=== PATIENT | female | born 1995 | race Two or more races ===

== ENCOUNTER 2016-07-08 23:50 | Emergency (ER) | payer OTHER ==
--- NOTE | ~2016-07-08 | CR72 ---
[facility] A Service of [facility] RADIOLOGY TEXT RESULTS PATIENT: VIRI RICE LOCATION: [facility] : [birth year] UNIT #: [id number] AGE: [address]: George Arana MD SEX: F ORDER DR: [id number] [facility]. [place], [place] [address] [id number] MR#: [id number] Acc #: [id number] NAME: VIRI RICE : 1995 SEX: F STUDY DATE/TIME: 07/09/2016 1:14 UNIT: [facility] ROOM: STUDY DESCRIPTION: CR Chest Single View Portable Attending Physician: George Arana Ordering Physician: Ed Doctor [id number] [facility] Primary Care Physician: Primary Care Physician No MEDICAL IMAGING REPORT This report is preliminary unless electronic signature is present EXAM Portable AP view of the chest COMPARISON None INDICATIONS 20-year-old female with dyspnea and cough for 2 days. FINDINGS Exam is limited by apical lordotic technique and low lung volumes. No evidence of pneumothorax, pleural effusion or consolidative pneumonia. There are questionable nodular opacities in both lungs which may reflect granulomas or could reflect blood vessels on end in the absence of known malignancy. Cardiomediastinal silhouette is within normal limits for low lung volumes. IMPRESSION 1. No evidence of pneumothorax, pleural effusion or consolidative pneumonia. 2. Bilateral subcentimeter rounded opacities in the perihilar locations favoring prominent blood vessels on end and less likely pulmonary nodules. 1 could consider standard PA and lateral views of the chest to exclude pulmonary nodule if clinically indicated. If the patient does not have a history of malignancy these are likely noncalcified granulomas if they are actually true pulmonary nodules. 1. Dictated by... Jorge Callaway M.D. THIS IS AN ELECTRONICALLY VERIFIED REPORT Jorge Callaway M.D. at 07/13/2016 7:47 AM [facility] A Service [facility] RADIOLOGY TEXT RESULTS PATIENT: VIRI RICE LOCATION: [facility] : [birth year] UNIT #: [id number] AGE: [address]: George Arana MD SEX: F ORDER DR: YOHAN/chase TD: 07/09/2016 08:36 JOB #: [id number] MEDICAL IMAGING REPORT COPY
[2016-07-09 02:14] LABS: INFLUENZA A NEG (NEG); INFLUENZA B NEG (NEG)
[2016-07-09 02:14] LABS: BASOPHIL# 0.1 X10e3 (0-0.3); BASOPHIL% 0.7 % (0-2.5); EOSINOPHIL# 0.4 X10e3 (0-0.7); EOSINOPHIL% 3.6 % (0.0-7.0); HEMATOCRIT 34.6 % (35.0-45.0); LYMPHOCYTE# 4.3 X10e3 (1.0-3.5); MEAN CELL VOLUME 71.2 FL (83-96); MEAN CORPUSCULAR HEMOGLOBIN 22.7 PG (28-34); MEAN CORPUSCULAR HGB CONC 31.9 g/dL (30-36); MEAN PLATELET VOLUME 8.9 FL (6.5-11.5); MONOCYTE# 0.6 X10e3 (0-1.0); MONOCYTE% 5.3 % (3.0-12.0); NEUTROPHIL# 5.9 X10e3 (1.5-7.1); NEUTROPHIL% 52.4 % (40-75); PLATELET COUNT 346 X10e3 (140-420); RED BLOOD COUNT 4.86 X10e (3.90-5.30); WHITE BLOOD COUNT 11.3 X10e3 (4.0-10.5)
[2016-07-09 02:16] LABS: DIFF IND NO
[2016-07-09 02:38] LABS: BLOOD UREA NITROGEN 9 mg/dL (9-23); BUN/CREATININE RATIO 12.85; CARBON DIOXIDE 27 mmol/L (22-31); CHLORIDE 106 mmol/L (100-111); CREATININE SERUM 0.7 mg/dL (0.6-1.4); GLOM FILT RATE Estimated ABOVE60 mL/min (>60); GLUCOSE FASTING 93 mg/dL (70-110); SODIUM 137 mmol/L (135-145)
== END 2016-07-09 03:18 | disposition home or self-care (01) ==
LOC: CED 23:50
PROVIDERS: Emergency Medicine
DX: R05 Cough (principal); R11.2 Nausea with vomiting, unspecified
CPT/HCPCS: 36415; 71010; 80048; 84703; 85025; 87804; 96361; 96374; 99284; J2405